=== PATIENT | female | born 1960 | race Caucasian/White ===

== ENCOUNTER → 2018-02-04 | Outpatient (CLI) | payer OTHER ==
--- NOTE | 2018-02-04 10:24 | US ---
EXAMINATION TYPE: US gallbladder DATE OF EXAM: 02/04/2018 COMPARISON: NONE CLINICAL HISTORY: R10.84 Generalized Abdominal Pain. EXAM MEASUREMENTS: Liver Length: 13.5 cm Gallbladder Wall: 0.2 cm CBD: 0.3 cm Right Kidney: 9.5 x 3.6 x 5.0 cm Pancreas: Poorly visualized Liver: wnl Gallbladder: neck has a honeycomb appearance, its possible these are folds Evidence for sonographic Nielsen's sign: no CBD: wnl Right Kidney: multiple cystic spaces that appear to be mostly connected and possibly connect with th e renal pelvis, echogenic foci seen inferior measuring 1.0 x 0.7 x 0.8cm IMPRESSION: 1. Right renal findings that could represent xanthogranulomatous pyelonephritis, marked hydronephrosi s, or parapelvic cysts. Further evaluation with enhanced CT abdomen pelvis is recommended. 2. No sonographic evidence of cholelithiasis or acute cholecystitis. Debris at the gallbladder neck m ay represent septations, folds or biliary sludge. 3. Poor visualization of the pancreas which could also be assessed on the above recommended CT.
--- NOTE | 2018-02-04 14:45 | CT ---
EXAMINATION TYPE: CT abdomen w con DATE OF EXAM: 02/04/2018 HISTORY: Generalized abdominal pain per patient and order. History of right-sided breast cancer and l umpectomy. CT DLP: 513mGycm Automated Exposure Control for Dose Reduction was Utilized. CONTRAST: CT scan of the abdomen is performed with IV Contrast, patient injected with 100 mL of Omnipaque 300. COMPARISON: Same day gallbladder ultrasound. FINDINGS: LUNG BASES: No significant abnormality is appreciated. LIVER/GB: Liver is mildly enlarged with prominent left hepatic lobe. PANCREAS: Distal pancreatic body and tail are heterogeneous and enlarged measuring up to 3.6 cm AP di ameter axial image 17. No obvious focal solid or cystic mass is present. No significant surrounding i nflammatory change is seen. No ductal dilatation is noted. SPLEEN: No significant abnormality is seen. ADRENALS: No significant abnormality is seen. KIDNEYS: There is symmetric cortical medullary uptake and excretion from both kidneys. There is howev er severe pyelocaliectasis and suspected moderate hydroureter. There is dependent 9 mm calcification lower pole level right kidney calyx axial image 35. BOWEL: Oral contrast does not reach colonic level. No suspicious dilatation is present. LYMPH NODES: No greater than 1cm abdominal lymph nodes are appreciated. OSSEOUS STRUCTURES: Moderate to severe disc space narrowing with vacuum disc phenomenon and endplate sclerosis L5-S1 level is present. OTHER: There is mild to moderate mixed plaque in distal abdominal aorta. IMPRESSION: 1. Severe right-sided hydronephrosis without delayed excretion. Distal ureter is not assessed on this study. Consider obstructing calculus. Clinical and urine lab correlation advised. Urology referral s hould be considered to further assess. 2. Asymmetric enlargement distal pancreatic body and tail without obvious obstructing mass or neoplas m. Consider CT or MRI imaging follow-up in 3-6 months times to reassess.
== END | disposition home or self-care (01) ==
LOC: RADUSMAIN 08:31
PROVIDERS: ATTEND Family Medicine
DX: N13.30 Unspecified hydronephrosis (principal); K86.89 Other specified diseases of pancreas; Z88.2 Allergy status to sulfonamides
CPT/HCPCS: 76705; 74160; Q9967

== ENCOUNTER → 2018-02-05 | Outpatient (CLI) | payer OTHER ==
--- NOTE | 2018-02-05 11:56 | FL ---
EXAMINATION TYPE: FL UGI air DATE OF EXAM: 02/05/2018 COMPARISON: CT abdomen from yesterday. HISTORY: Mid to right-sided abdominal pain with some blood in stool per patient. TECHNIQUE: A double contrast UGI study is performed. A total of 65 seconds of fluoroscopic time was utilized during procedure. 26 spot images were saved during procedure. FINDINGS: Material Dispatcher image of the abdomen shows contrast from CT residing in lower abdominal and pelvic s mall and large bowel loops. The esophagus shows satisfactory motility and emptying into the stomach. No evidence of hiatal herni a or stricture noted. No intraluminal mass was visualized. Patient did experience single episode of a spiration which did not initiate cough reflex upon rapidly drinking barium. Subsequent single drinks did not reproduce penetration or aspiration. The stomach shows normal distensibility, peristalsis, and mucosal folds. No evidence of any mass or ulcer disease. No significant gastroesophageal reflux was seen during real time performance of this study. The duodenal bulb, sweep, and proximal small bowel loops are unremarkable. IMPRESSION: Single episode of aspiration otherwise unremarkable study.
== END | disposition home or self-care (01) ==
LOC: RADFLMAIN 10:48
PROVIDERS: ATTEND Family Medicine
DX: R10.84 Generalized abdominal pain (principal); Z88.2 Allergy status to sulfonamides
CPT/HCPCS: 74246

== ENCOUNTER → 2019-09-24 | Outpatient (CLI) | payer OTHER ==
[~2019-09-24] MED LIST: FUROSEMIDE 10 MG/ML 2 ML VIAL IV ONE
--- NOTE | 2019-09-24 13:55 | NM ---
EXAMINATION TYPE: NM lasix renogram DATE OF EXAM: 09/24/2019 COMPARISON: NONE HISTORY: Right-sided hydronephrosis Following administration of 10.13 mCi Tc 99m MAG3 with 20mg Lasix. Immediate images post injection FINDINGS: Left: 66.8 %. Right: 33.2 %. Max renal flow left: 3 minutes. Max renal flow right: 33.2 minutes. Satisfactory accumulation of radiotracer within both renal collecting systems. After the administrati on of Lasix, there is prompt excretion from both collecting systems. T 1/2 left: 16.8 minutes. T 1/2 right: 20.6 minutes. IMPRESSION: Marked asymmetric function of the kidneys with max left renal flow at 3 minutes and right flow at 33.2 minutes. Abnormal and delayed renal function on the right. Obstructive process is confi rmed.
== END | disposition home or self-care (01) ==
LOC: RADNMMAIN 12:36
PROVIDERS: ATTEND Urology
DX: R93.421 Abnormal radiologic findings on diagnostic imaging of right kidney (principal); R93.422 Abnormal radiologic findings on diagnostic imaging of left kidney; N13.30 Unspecified hydronephrosis
CPT/HCPCS: 78708; A9562

== ENCOUNTER → 2020-12-14 | Outpatient (CLI) | payer OTHER ==
--- NOTE | 2020-12-14 15:58 | CT ---
EXAMINATION TYPE: CT abdomen pelvis w con DATE OF EXAM: 12/14/2020 HISTORY: RUQ pain CT DLP: 360.2mGycm Automated Exposure Control for Dose Reduction was Utilized. CONTRAST: CT scan of the abdomen and pelvis is performed with oral and with IV Contrast, patient injected with 100 mL of Isovue 300. COMPARISON: CT abdomen February 04, 2018 FINDINGS: LUNG BASES: Tiny pericardial effusion is seen. LIVER/GB: No significant abnormality is appreciated. PANCREAS: Increased fullness and enlargement to the distal body and tail of the pancreas for referenc e axial image 17 without focal mass, no significant change from prior study. SPLEEN: No significant abnormality is seen. ADRENALS: No significant abnormality is seen. KIDNEYS: Persistent 8 mm calculus lower pole right kidney on image 37. Persistent severe right-sided hydronephrosis. No delayed excretion. No hydroureter. Stable right-sided pelvic phleboliths. BOWEL: Normal appearing appendix seen in the right pelvis. Oral contrast does not reach terminal ileu m making evaluation of distal bowel suboptimal. No suspicious small or large bowel dilatation. UTERUS/ADNEXA: Anteverted uterus. LYMPH NODES: No greater than 1cm abdominal or pelvic lymph nodes are appreciated. OSSEOUS STRUCTURES: [id number] disc space narrowing lumbosacral junction with endplate sclero sis and mild to moderate anterior spurring. OTHER: No significant additional abnormality is seen. IMPRESSION: No new or acute finding is seen to account for patient's clinical symptoms. Severe right- sided hydronephrosis without delayed excretion redemonstrated.
== END | disposition home or self-care (01) ==
LOC: RADCTMAIN 13:52
PROVIDERS: ATTEND Internal Medicine
DX: N13.30 Unspecified hydronephrosis (principal)
CPT/HCPCS: 74177; Q9967

== ENCOUNTER → 2021-05-22 | Outpatient (CLI) | payer OTHER ==
[2021-05-22 16:40] LABS: Basophils # (A) 0.1 k/uL (0-0.2); Basophils % (A) 2 %; Eosinophils # (A) 0.1 k/uL (0-0.7); Eosinophils % (A) 1 %; HCT 39.3 % (34.0-46.0); Lymphocytes # (A) 1.2 k/uL (1.0-4.8); Lymphocytes % (A) 28 %; MCH 31.8 pg (25.0-35.0); MCV 96.2 fL (80.0-100.0); Mean Platelet Volume 7.1; Monocytes # (A) 0.2 k/uL (0-1.0); Monocytes % (A) 5 %; Neutrophils # (A) 2.7 k/uL (1.3-7.7); Neutrophils % (A) 63 %; Platelet Count 310 k/uL (150-450); RBC 4.08 m/uL (3.80-5.40); WBC 4.3 k/uL (3.8-10.6)
== END | disposition home or self-care (01) ==
LOC: LABPAT 15:44
PROVIDERS: ATTEND Obstetrics & Gynecology
DX: Z01.810 Encounter for preprocedural cardiovascular examination (principal); Z01.812 Encounter for preprocedural laboratory examination; N87.1 Moderate cervical dysplasia
CPT/HCPCS: 85025; 93005

== ENCOUNTER 2021-05-23 07:51 | Day surgery (SDC) | payer OTHER ==
[~2021-05-23 07:51] MED LIST changes: -FUROSEMIDE 10 MG/ML 2 ML VIAL IV ONE; +Pre Op ABX Message 1 EACH MISC MISCELLANE ONE
[2021-05-23 08:24] VITALS: TEMP 98.1
[2021-05-23] MEDS ORDERED: ONDANSETRON 4 MG/2 ML VIAL ONE (08:28)
[2021-05-23] MEDS ORDERED: LIDOCAINE 1% (10MG/ML) FOR IV START INTRADERMA ONE (08:30)
[2021-05-23] MEDS ORDERED: ONDANSETRON 4 MG/2 ML VIAL IVP ONE (08:34)
[2021-05-23] MEDS ORDERED: LACTATED RINGERS 1,000 ML IV ONE (08:34)
[2021-05-23] MEDS ORDERED: DEXAMETHASONE SOD PHOSPHATE 4 MG/ML 1 ML VIAL IVP ONE (08:34)
[2021-05-23] MEDS ORDERED: PROPOFOL 10 MG/ML 20 ML VIAL IV ONE (09:01)
[2021-05-23] MEDS ORDERED: LIDOCAINE 1% INJ 10MG/ML (20 ML MDV) ONE (09:01)
[2021-05-23] MEDS ORDERED: fentaNYL (PF) 50 MCG/ML 2 ML AMP ONE (09:01)
[2021-05-23] MEDS ORDERED: MIDAZOLAM 2 MG/2 ML VIAL ONE (09:01)
[2021-05-23] MEDS ORDERED: KETOROLAC 15 MG/ML 1 ML VIAL ONE (09:01)
[2021-05-23] MEDS ORDERED: IODINE/POTASS IOD (LUGOLS) BOTTLE TOPICAL ONE (09:11)
[2021-05-23] MEDS ORDERED: FERRIC SUBSULFATE (MONSELS) JAR TOPICAL ONE (09:11)
[2021-05-23] MEDS ORDERED: KETOROLAC 15 MG/ML 1 ML VIAL IVP PRN (09:32)
[2021-05-23] MEDS ORDERED: Acetaminophen-Codeine 300-30mg TAB PO PRN ×2 (09:32)
[2021-05-23] MEDS ORDERED: diphenhydrAMINE 50 MG/ML 1 ML VIAL IVP PRN (09:32)
[2021-05-23] MEDS ORDERED: SIMETHICONE 80 MG CHEWABLE PO PRN (09:32)
[2021-05-23] MEDS ORDERED: METOCLOPRAMIDE 5 MG/ML 2 ML VIAL IVP PRN (09:32)
[2021-05-23] MEDS ORDERED: ONDANSETRON 4 MG/2 ML VIAL IVP PRN (09:32)
[2021-05-23] MEDS ORDERED: IBUPROFEN 600 MG TAB PO PRN (09:32)
--- NOTE | 2021-05-23 09:40 | P.OP ---
Date of Procedure: 05/23/21 Preoperative Diagnosis: #1. Endocervical RUDDY 2 Postoperative Diagnosis: Same pending pathology Procedure(s) Performed: #1. Cold knife cervical conization Anesthesia: other (Gen. by facemask) Surgeon: Rehan Kelly Estimated Blood Loss (ml): 10 IV fluids (ml): 300 Urine output (ml): 75 Pathology: other (Cervical cone) Condition: stable Disposition: PACU Operative Findings: Preoperative pelvic examination demonstrated an atrophic uterus and cervix with no adnexal masses bilaterally. Intraoperatively, there was some nonstaining area on the ectocervix from approximately 6:00 to 8:00 which was included in the cone and then thoroughly cauterized as well. The cone measured to a depth of approximately 2 cm with a total width of perhaps 1.5 cm x 1.5 cm. All of the areas of concern did appear to be included. The patient is an excellent candidate for vaginal hysterectomy should it become necessary. Description of Procedure: The patient was prepped and draped in usual fashion after general anesthesia was administered by the anesthesiologist. A weighted speculum was placed and the anterior lip of the cervix grasped with a single-tooth tenaculum. Cervical stay sutures were placed from 2:00 to 4:00 and 8:00 to 10:00 at the cervicovaginal junction into the body of the cervix with 0 Vicryl and firmly tied down bilaterally. The cervix was then painted with Lugol strong iodine with the findings as noted above. There were some areas of nonstaining from approximate 6:00 to 8:00 on the ectocervix which had not been appreciated at colposcopy. A uterine sound was placed into the uterus to a depth of 6 cm at the fundus. It was used as a guide to then use an 11 blade scalpel to make a incision the depth of the scalpel blade, proximally 2-2-1/2 cm circumferentially including any of the nonstaining areas. Once this had been carried out, the sound was removed and the cone grasped anterior to posterior using an Allis clamp allowing it to be divided at its base. As noted above, total depth of at least 2 cm was carried out. The anterior lip was then grasped with an Allis clamp so that the depths of the cone bed could be exposed. Cautery was utilized using the ball unit to cauterize from the base to the exterior of the cone. Hemostasis appeared to be excellent. The ectocervical margins, particularly from 6:00 to 8:00 on the cervix were thoroughly cauterized. One large swab Monsel solution was then placed into the cervix and left there for perhaps 20 seconds for good measure. It was then removed. Hemostasis was excellent. The stay sutures were left in place but trimmed to approximately 1 cm. All instrumentation was removed. As it had been incidentally omitted at the beginning of the case, the bladder was then drained of approximate 75 mL of clear israel urine. The patient is a good candidate for vaginal hysterectomy should it become necessary in the future. Estimated blood loss for the entire case was 10 mL or less. There are no complications. All sponge, instrument, and needle counts were correct. The patient tolerated the procedure well and proceeded to the recovery room in stable condition.
[2021-05-23] MEDS ORDERED: LACTATED RINGERS 1,000 ML IV SCH (09:45)
[2021-05-23 09:57] VITALS: RESP 16
[2021-05-23] MEDS ORDERED: HYDROmorphone 0.5 MG/0.5 ML SYRINGE IVP ONE (10:21)
[2021-05-23 11:05] VITALS: BP 122/78; PULSE 59
== END 2021-05-23 11:34 | disposition home or self-care (01) ==
LOC: OR 07:51
PROVIDERS: ATTEND Obstetrics & Gynecology
DX: N87.0 Mild cervical dysplasia (principal); Z85.3 Personal history of malignant neoplasm of breast; A63.0 Anogenital (venereal) warts; Z79.899 Other long term (current) drug therapy; Z88.2 Allergy status to sulfonamides; I10 Essential (primary) hypertension; Z87.891 Personal history of nicotine dependence
CPT/HCPCS: 57520; 88342; 88307; J2250; J1100; J2405; J2001; J3010; J1885; J2704; J1170

== ENCOUNTER → 2022-03-01 | Outpatient (CLI) | payer OTHER ==
[~2022-03-01] MED LIST changes: +FUROSEMIDE 10 MG/ML 2 ML VIAL IV ONE; -Pre Op ABX Message 1 EACH MISC MISCELLANE ONE
--- NOTE | 2022-03-02 08:57 | NM ---
EXAMINATION TYPE: NM lasix renogram DATE OF EXAM: 03/01/2022 COMPARISON: CT abdomen and pelvis December 14, [address] urogram 2018. Prior nuclear medicine Lasix renogram September 24, 2019 HISTORY: Symptoms of urinary urgency and hesitancy per patient. N13.5 per order. Following administration of 9.83 mCi Tc 99m MAG3 with 20mg Lasix. Immediate images post injection FINDINGS: Dynamic arterial phase images show cortical medullary uptake bilaterally with slightly dimi nished uptake in the right kidney diffusely versus left kidney similar to prior. Slight delayed secre tion in the right kidney versus left kidney with calyceal prominence redemonstrated. There is no incr eased excretion on the right kidney after Lasix administration. Left: 66.8 %. Right: 33.2 %. Max renal flow left: 2.25 minutes. Max renal flow right: 33.2 minutes. T 1/2 left: 15.8 minutes. T 1/2 right: 23.9 minutes. IMPRESSION: No significant change from prior study. Stable diminished function to the right kidney ve rsus left kidney.
== END | disposition home or self-care (01) ==
LOC: RADNMMAIN 12:56
PROVIDERS: ATTEND Surgery
DX: N13.5 Crossing vessel and stricture of ureter without hydronephrosis (principal)
CPT/HCPCS: 78708; A9562

== ENCOUNTER → 2022-05-01 | Outpatient (CLI) | payer OTHER ==
--- NOTE | 2022-05-01 22:00 | CT ---
EXAMINATION TYPE: CT abdomen wo con DATE OF EXAM: 05/01/2022 COMPARISON: CT dated 12/14/2020 HISTORY: renal stone CT DLP: 255 mGycm Automated exposure control for dose reduction was used. TECHNIQUE: Helical acquisition of images was performed from the lung bases through the top of iliac crest to include entire abdomen. CONTRAST: Performed without Oral Contrast and without IV contrast. FINDINGS: LUNG BASES: No significant abnormality is appreciated. LIVER/GB: No significant abnormality is appreciated. PANCREAS: No significant abnormality is seen. SPLEEN: No significant abnormality is seen. ADRENALS: No significant abnormality is seen. KIDNEYS: Persistent hydronephrosis of the right kidney. 9 mm stone is seen at that the junction of th e right renal pelvis and the lower calyceal group. Dependent stone is seen at the lower pole of the r ight kidney measuring 9 mm. Few subtle millimetric gravels are seen in the left kidney measuring up t o 1 mm. No left-sided hydronephrosis. No definitive renal lesion by this unenhanced CT scan. BOWEL: Unremarkable stomach, duodenum and visualized small bowel. Fecal loading of the colon. LYMPH NODES: No pathologically enlarged abdominal lymph nodes. OSSEOUS STRUCTURES: No aggressive bone lesion. FREE AIR: No free air is visualized. OTHER: Mild arterial atherosclerotic calcifications. No sizable abdominal fluid. Soft tissue thickeni ng along the umbilicus, please correlate clinically. IMPRESSION: Chronic right-sided hydronephrosis with 2 right renal calculi and a few left renal gravels as describ ed above. No left-sided hydronephrosis. Other findings as described above.
== END | disposition home or self-care (01) ==
LOC: RADCTMAIN 17:14
PROVIDERS: ATTEND Surgery
DX: N13.2 Hydronephrosis with renal and ureteral calculous obstruction (principal)
CPT/HCPCS: 74150

== ENCOUNTER → 2022-09-10 | Outpatient (CLI) | payer OTHER ==
--- NOTE | 2022-09-10 15:49 | NM ---
EXAMINATION TYPE: NM lasix renogram DATE OF EXAM: 09/10/2022 COMPARISON: Prior nuclear medicine Lasix renogram dated 03/01/2022, CT 05/01/2022 HISTORY: Hydronephrosis Following administration of 10 mCi Tc 99m MAG3 with 20mg Lasix. Immediate images post injection FINDINGS: Similar findings are present compared to prior exam. Left: 66.7 %. Right: 33.3 %. Max renal flow left: 3 minutes. Max renal flow right: 11 minutes. Dynamic arterial phase images show cortical medullary uptake bilaterally with slightly diminished upt wendy in the right kidney diffusely versus the left kidney, similar to prior. Excretion is somewhat del ayed in the right kidney as compared to the left kidney as on prior, calyceal prominence is again red emonstrated Asymmetric accumulation of radiotracer within both renal collecting systems. After the ad ministration of Lasix, there is asymmetric delayed excretion from the right kidney as compared to the left. T 1/2 left: 13.2 minutes. T 1/2 right: 19.1 minutes. IMPRESSION: Similar findings to prior exam. Function in the right kidney is somewhat diminished as compared to th e left
== END | disposition home or self-care (01) ==
LOC: RADNMMAIN 08-21 13:10
PROVIDERS: ATTEND Surgery
DX: N13.30 Unspecified hydronephrosis (principal)
CPT/HCPCS: 78708; A9562

== ENCOUNTER → 2023-02-12 | Outpatient (CLI) | payer OTHER ==
--- NOTE | 2023-02-13 12:46 | CT ---
EXAMINATION TYPE: CT abdomen pelvis wo con CT DLP: 231.30 mGycm, Automated exposure control for dose reduction was used. DATE OF EXAM: 02/12/2023 6:43 PM COMPARISON: CT abdomen pelvis most recent from 05/01/2022 CLINICAL INDICATION:Female, 62 years old with history of N20.0; kidney stones TECHNIQUE: Axial CT of the abdomen and pelvis. Sagittal and coronal reformats were created on a [employer] workstation. Contrast used: none Oral contrast used: without Oral Contrast FINDINGS: LOWER CHEST: Unremarkable ABDOMEN LIVER: Unremarkable GALLBLADDER AND BILE DUCTS: Unremarkable. PANCREAS: Unremarkable. SPLEEN: Unremarkable. ADRENAL GLANDS: Unremarkable. KIDNEYS AND URETERS: Interval increase in right renal calculi compared to prior is now at least one d ominant measuring 6 x 4 mm and a group of calculi more inferiorly in the lower renal Pole of at least 6 calculi the largest measuring 5 x 4 mm. These lower pole calculi felt to be within the calyceal di verticula. Multiple right-sided renal cysts also present. Left renal calculi measuring 2 to 3 mm and renal cysts are present. No evidence for obstructive uropathy the right renal collecting system remai ns prominent. PELVIS BLADDER: Unremarkable REPRODUCTIVE: Unremarkable. ABDOMEN & PELVIS STOMACH AND BOWEL: No evidence of bowel obstruction. PERITONEUM/RETROPERITONEUM: No evidence of pneumoperitoneum or free fluid. VASCULATURE: Mild atherosclerotic calcifications are present throughout the abdominal aorta and its b ranches. No evidence of aortic aneurysm. MUSCULOSKELETAL: No acute osseous abnormalities. Mild disc degeneration changes are present throughou t the thoracolumbar spine. LYMPH NODES: No gross evidence for lymphadenopathy. SOFT TISSUE/ABDOMINAL WALL: Unremarkable IMPRESSION: Multiple right-sided renal calculi. Right lower inferior calyceal diverticula demonstrates increase i n number of calculi in today's exam. There is prominent right renal pelvis noted. Nonobstructing left renal calculi. No obstructive uropathy.
== END | disposition home or self-care (01) ==
LOC: RADCTMAIN 18:27
PROVIDERS: ATTEND Surgery
DX: N20.0 Calculus of kidney (principal); N28.89 Other specified disorders of kidney and ureter
CPT/HCPCS: 74176

== ENCOUNTER → 2024-02-05 | Outpatient (CLI) | payer OTHER ==
--- NOTE | 2024-02-05 13:23 | XR ---
EXAMINATION TYPE: XR KUB DATE OF EXAM: 02/05/2024 1:04 PM CLINICAL INDICATION:Female, 63 years old with history of N20.0 Calculus kidney; [facility] COMPARISON: CT abdomen 02/04/2023. TECHNIQUE: One radiographic view of the abdomen was obtained. FINDINGS: The bowel gas pattern is nonspecific without dilated loops of small or large bowel. There i s no evidence for organomegaly or pneumoperitoneum. Right-sided suspected renal calculi are identifi ed in the region of the kidney. Scattered phleboliths are present within the pelvis. Fecal material and gas are demonstrated throughout the colon and rectum. IMPRESSION: 1. Nontraumatic bowel gas pattern. 2. Suspected right renal stones.
== END | disposition home or self-care (01) ==
LOC: RADXRMAIN 12:44
PROVIDERS: ATTEND Surgery
DX: N20.0 Calculus of kidney (principal)
CPT/HCPCS: 74018

== ENCOUNTER → 2024-03-13 | Outpatient (CLI) | payer OTHER ==
--- NOTE | 2024-03-26 10:24 | CT ---
EXAMINATION TYPE: CT urogram wo/w con CT DLP: 1686 mGycm, Automated exposure control for dose reduction was used. DATE OF EXAM: 03/13/2024 6:40 PM COMPARISON: CT abdomen pelvis most recent from 02/12/2023 CLINICAL INDICATION:Female, 63 years old with history of R31.9 HEMATURIA; [facility], TECHNIQUE: Urogram with imaging of the abdomen and pelvis. Coronal and sagittal reformats were performed. 2D and 3D reconstructions are performed to assist visualization of the urinary tract on a separate workstat ion. Contrast used: mL of , 100 cc Isovue-370. Oral contrast used: None. FINDINGS: LOWER CHEST: No significant findings. GENITOURINARY: RIGHT KIDNEY AND URETER: Right renal calculi which have all increased in size from prior, one new renal calculus measuring 11 mm. Another calculus which is larger than prior exam now measuring 8 mm, previously 5 mm. No large ca lculus measuring 20 x 11 mm. These calculi may be in dilated renal pelves. No renal mass. Multiple re nal cysts are present. There is mild dilation of the right renal pelvis with some urothelial thickeni ng series 6 image 19. On 10 minute delayed imaging there is excretion into the dilated calyces with p oor visualization of the entire right ureter. Limited distal ureter secondary to lack of excreted IV contrast with that said urothelial lesions: no filling defect, dilation, stricture or wall thickening . LEFT KIDNEY AND URETER: Calculi measuring up to 3 mm which are nonobstructing. Left-sided renal cyst. No hydronephrosis or hydroureter. No renal mass or other lesions. Limited distal ureter secondary to lack of excreted IV contrast with that said urothelial lesions: no filling defect, dilation, strictu re or wall thickening. URINARY BLADDER: Not optimally distended. Limited evaluation secondary to partial filling of the blad jaziel with excreted IV contrast. No calculi or obvious mass. REPRODUCTIVE: Unremarkable. ABDOMEN LIVER: Unremarkable. GALLBLADDER AND BILE DUCTS: Unremarkable PANCREAS: Unremarkable. SPLEEN: Unremarkable. ADRENAL GLANDS: Unremarkable. STOMACH AND BOWEL: . No evidence of bowel obstruction. Moderate amount of stool throughout the colon. The appendix is normal. Few scattered colonic diverticula. PERITONEUM: No evidence of pneumoperitoneum, free fluid, or adenopathy. VASCULATURE: Mild atherosclerotic calcifications are present throughout the abdominal aorta and its b ranches. No evidence of aortic aneurysm. MUSCULOSKELETAL: No acute osseous abnormalities. Mild disc degeneration changes are present throughou t the thoracolumbar spine. LYMPH NODES: No gross evidence for lymphadenopathy. SOFT TISSUE/ABDOMINAL WALL: Fat-containing umbilical hernia. IMPRESSION: 1. Dilated right pelvis and right calyces with increasing size/bulkiness of right renal calculi with additional new calculus in the right kidney. There is stable mild smooth circumferential thickening of the urothelium at the renal pelvis. The ureters are very poorly opacified bilaterally worse on the right which limits evaluation. 2. No renal masses definitively visualized. No left hydronephrosis. 3. Nonobstructing left renal calculi.
== END | disposition home or self-care (01) ==
LOC: RADCTMAIN 16:31
PROVIDERS: ATTEND Surgery
DX: N20.0 Calculus of kidney (principal); N28.89 Other specified disorders of kidney and ureter; R31.9 Hematuria, unspecified
CPT/HCPCS: 74178; 74400; Q9967

== ENCOUNTER → 2025-03-08 | Outpatient (CLI) | payer OTHER ==
--- NOTE | 2025-03-08 11:19 | US ---
EXAMINATION TYPE: US abdomen complete DATE OF EXAM: 03/08/2025 COMPARISON: CT & US CLINICAL INDICATION: Female, 64 years old with history of R10.84 GENERALIZED ABDOMINAL PAIN; ABD pain , more on right side, pt has h/o renal stones and hydro TECHNIQUE: Grayscale and color Doppler imaging of the abdomen was performed. FINDINGS: EXAM MEASUREMENTS: Liver Length: 15.7 cm Gallbladder Wall: 0.2 cm CBD: 0.4 cm, color Doppler imaging was utilized to isolate the common bile duct for measurement. Spleen: 9.8 cm Right Kidney: 10.8 x 4.1 x 5.6 cm Left Kidney: 11.8 x 5.1 x 5.3 cm [employer]PER[employer] NOTES: Pancreas: wnl Liver: wnl, no dilated ducts, masses or cysts. Gallbladder: wnl Evidence for sonographic Nielsen's sign: No CBD: wnl Spleen: wnl Right Kidney: Mild to moderate hydro with possible 2 renal calculi lower pole, largest 1.7 cm Left Kidney: wnl, No hydronephrosis, calculi or masses seen Upper IVC: wnl Abd Aorta: wnl IMPRESSION: Mild to moderate right hydronephrosis with a renal calculi identified similar to 03/13/2024 [facility], , 03/08/2025 11:16 AM
== END | disposition home or self-care (01) ==
LOC: RADUSWWP 01-01 12:46
PROVIDERS: ATTEND Internal Medicine
DX: Z53.9 Procedure and treatment not carried out, unspecified reason (principal)
CPT/HCPCS: 76700